=== PATIENT | female | born 1985 ===

== ENCOUNTER 2016-09-21 20:00 | Emergency (ER) | payer MEDICAID, OTHER ==
[2016-09-21 20:01] VITALS: BMI 32.5
--- NOTE | 2016-09-21 20:19 | ED PDOC ---
Arrival/HPI <Sunny Taveras - Last Filed: 09/21/16 21:05> - General Historian: Patient <Boris Thomas - Last Filed: 09/21/16 22:47> - General Chief Complaint: GI Problem Time Seen by Provider: 09/21/16 20:19 - History of Present Illness Narrative History of Present Illness (Text): 09/21/16 20:19 31 y/o female, no significant pmh, nkda, c/o nausea/vomiting/diarrhea/abdominal pain x 1 day. As per patient, both of her [place] are sick with nausea/vomiting and diarrhea with the stomach virus passing around at home. Pt. has no fever or chills, 4 episodes of diarrhea with couple episodes of nausea/vomiting, no recent traveling for the past 4 weeks, no chest pain or shortness of breath, no night sweat, no dizziness, no numbness or tingling, no other medical or psychological complaints. (Boris Thomas) Past Medical History - Provider Review Nursing Documentation Reviewed: Yes - Infectious Disease Hx of Infectious Diseases: None - Tetanus Immunization Tetanus Immunization: Unknown - Past Medical History Past Medical History: No Previous - Cardiac Hx Cardiac Disorders: No - Pulmonary Hx Asthma: Yes - Neurological Hx Neurological Disorder: No - HEENT Hx HEENT Disorder: No - Renal Hx Renal Disorder: No - Endocrine/Metabolic Hx Endocrine Disorders: No - Hematological/Oncological Hx Blood Disorders: No - Integumentary Hx Dermatological Disorder: No - Musculoskeletal/Rheumatological Hx Musculoskeletal Disorders: No - Gastrointestinal Hx Gastrointestinal Disorders: No - Genitourinary/Gynecological Hx Genitourinary Disorders: No - Psychiatric Hx Depression: No Hx Emotional Abuse: No Hx Physical Abuse: No Hx Substance Use: No - Past Surgical History Past Surgical History: No Previous - Suicidal Assessment Feels Threatened In Home Enviroment: No <Boris Thomas - Last Filed: 09/21/16 22:47> Family/Social History - Physician Review Nursing Documentation Reviewed: Yes Family/Social History: Unknown Family HX Smoking Status: Never Smoked Hx Alcohol Use: No Hx Substance Use: No Hx Substance Use Treatment: No <Boris Thomas - Last Filed: 09/21/16 22:47> Allergies/Home Meds <Sunny Taveras - Last Filed: 09/21/16 21:05> <Boris Thomas - Last Filed: 09/21/16 22:47> Allergies/Adverse Reactions: Allergies No Known Allergies Allergy (Verified 09/21/16 20:10) Review of Systems - Review of Systems Constitutional: absent: Fatigue, Fevers Eyes: absent: Vision Changes ENT: absent: Hearing Changes Gastrointestinal: Abdominal Pain, Diarrhea, Nausea, Vomiting Musculoskeletal: Myalgias. absent: Arthralgias, Back Pain, Neck Pain, Joint Swelling Skin: absent: Rash, Pruritis, Skin Lesions Psychiatric: absent: Anxiety, Depression, Suicidal Ideation <Boris Thomas - Last Filed: 09/21/16 22:47> Physical Exam Vital Signs Reviewed: Yes Temperature: Afebrile Blood Pressure: Normal Pulse: Regular Respiratory Rate: Normal Appearance: Positive for: Well-Appearing, Non-Toxic, Comfortable Pain Distress: Mild Mental Status: Positive for: Alert and Oriented X 3 - Systems Exam Head: Present: Atraumatic, Normocephalic Pupils: Present: PERRL Extroacular Muscles: Present: EOMI Conjunctiva: Present: Normal Mouth: Present: Moist Mucous Membranes Neck: Present: Normal Range of Motion Respiratory/Chest: Present: Clear to Auscultation, Good Air Exchange. No: Respiratory Distress, Accessory Muscle Use Cardiovascular: Present: Regular Rate and Rhythm, Normal S1, S2. No: Murmurs Abdomen: Present: Normal Bowel Sounds. No: Tenderness, Distention, Peritoneal Signs, Rebound, Guarding Back: Present: Normal Inspection. No: CVA Tenderness Upper Extremity: Present: Normal Inspection. No: Cyanosis, Edema Lower Extremity: Present: Normal Inspection. No: Edema Neurological: Present: GCS=15, Speech Normal, Motor Func Grossly Intact, Gait Normal, Memory Normal Skin: Present: Warm, Dry, Normal Color. No: Rashes Psychiatric: Present: Alert, Oriented x 3, Normal Insight, Normal Concentration <Boris Thomas - Last Filed: 09/21/16 22:47> Vital Signs Temp Pulse Resp BP Pulse Ox 09/21/16 22:21 98.5 F 87 18 115/77 98 09/21/16 20:11 98.9 F 96 H 16 123/83 99 Medical Decision Making <Sunny Taveras - Last Filed: 09/21/16 21:05> - Lab Interpretations I have reviewed the lab results: Yes Interpretation: No clinic. lab abnormalty <Boris Thomas - Last Filed: 09/21/16 22:47> ED Course and Treatment: 09/21/16 20:30 -labs/ua -IVF/pepcid/reglan -Observe and reassess 09/21/16 22:43 -Labs are non-significant -UA show no UTI -Lipase within normal limit -Pt. feels better, able to tolerate po -Discharge home with pepcid, zofran, BRAT diet, stay hydrated, follow up with your own pmd and GI within 2 days, return to the ER for any new or worsening signs or symptoms. (Boris Thomas) - Lab Interpretations Lab Results: 09/21/16 21:43 09/21/16 21:43 Lab Results 09/21/16 21:43: Sodium 139, Potassium 3.9, Chloride 102, Carbon Dioxide 27, Anion Gap 14, BUN 17, Creatinine 0.6, Est GFR ( Amer) > 60, Est GFR (Non- Af Amer) > 60, Random Glucose 89, Calcium 9.2, Total Bilirubin 0.7, AST 29, ALT 39, Alkaline Phosphatase 80, Total Protein 8.4 H, Albumin 4.7, Globulin 3.7, Albumin/Globulin Ratio 1.3, Lipase 50 09/21/16 21:43: WBC 9.8, RBC 5.06, Hgb 13.8, Hct 41.6, MCV 82.2, MCH 27.3, MCHC 33.2, RDW 14.1, Plt Count 233, MPV 10.0, Gran % 78.5 H, Lymph % (Auto) 15.7 L, Baker % (Auto) 4.8, Eos % (Auto) 0.8 L, Baso % (Auto) 0.2, Gran # 7.72 H, Lymph # 1.5, Baker # 0.5, Eos # 0.1, Baso # 0.02 09/21/16 20:25: Urine Color Yellow, Urine Appearance Sl cloudy, Urine pH 6.0, Ur Specific [place] >= 1.030, Urine Protein Trace H, Urine Glucose (UA) Negative , Urine Ketones Negative, Urine Blood Trace-intact H, Urine Nitrate Negative, Urine Bilirubin Negative, Urine Urobilinogen 0.2, Ur Leukocyte Esterase Negative , Urine RBC 1 - 3, Urine WBC 0 - 2, Ur Epithelial Cells 0 - 2, Urine Bacteria Few - Medication Orders Current Medication Orders: Discontinued Medications Famotidine (Pepcid) 20 mg IVP STAT STA Stop: 09/21/16 20:29 Last Admin: 09/21/16 21:57 Dose: 20 mg Sodium Chloride (Sodium Chloride 0.9%) 1,000 mls @ 999 mls/hr IV .Q1H1M STA Stop: 09/21/16 21:28 Last Admin: 09/21/16 21:57 Dose: 999 mls/hr Metoclopramide HCl (Reglan) 10 mg IVP STAT STA Stop: 09/21/16 20:29 Last Admin: 09/21/16 21:57 Dose: 10 mg - PA / STATISTICAL ENGINEER / Resident Statement FRED has reviewed & agrees with the documentation as recorded. <Sunny Taveras - Last Filed: 09/21/16 21:05> - PA / STATISTICAL ENGINEER / Resident Statement FRED has reviewed & agrees with the documentation as recorded. <Boris Thomas - Last Filed: 09/21/16 22:47> Disposition/Present on Arrival <Sunny Taveras - Last Filed: 09/21/16 21:05> - Present on Arrival Any Indicators Present on Arrival: No History of DVT/PE: No History of Uncontrolled Diabetes: No Urinary Catheter: No History of Decub. Ulcer: No History Surgical Site Infection Following: None - Disposition Have Diagnosis and Disposition been Completed?: Yes Disposition Time: 20:38 Patient Plan: Discharge <Boris Thomas - Last Filed: 09/21/16 22:47> - Disposition Diagnosis: Gastroenteritis Disposition: HOME/ ROUTINE Patient Problems: Current Active Problems Problem Status Onset Gastroenteritis Acute Condition: IMPROVED Additional Instructions: Discharge home with pepcid, zofran, BRAT diet, stay hydrated, follow up with your own pmd and GI within 2 days, return to the ER for any new or worsening signs or symptoms. Prescriptions: Famotidine [Pepcid] 20 mg PO BID PRN #14 tab PRN Reason: Other Ondansetron [Zofran] 4 mg PO Q8H PRN #10 tab PRN Reason: Nausea/Vomiting Referrals: Karely Ayers NS [Primary Care Provider] - Follow up with primary Gerry Andrew MD [Staff Provider] - Follow up with primary Forms: WORK NOTE
[2016-09-21] MEDS ORDERED: Sodium Chloride 0.9% 1,000 ML IV STA (20:28)
[2016-09-21 20:38] LABS: URINE BILIRUBIN NEGATIVE (NEGATIVE); URINE BLOOD TRACE-INTACT (NEGATIVE); URINE GLUCOSE (UA) NEGATIVE (NEGATIVE); URINE KETONE NEGATIVE (NEGATIVE); URINE LEUKOCYTE ESTERASE NEGATIVE Leu/uL (NEGATIVE); URINE PROTEIN TRACE mg/dL (<30 mg/dL); URINE UROBILINOGEN 0.2 E.U./dL (<1 E.U./dL)
[2016-09-21 20:39] LABS: URINE APPEARANCE SL CLOUDY (CLEAR); URINE COLOR YELLOW (YELLOW)
[2016-09-21 20:45] LABS: URINE BACTERIA FEW (NEG); URINE EPITHELIAL CELLS 0 - 2 /hpf (0-5); URINE WBC 0 - 2 /hpf (0-6)
[2016-09-21 21:51] LABS: ADD MANUAL DIFF? NO
[2016-09-21 21:52] LABS: BASO # 0.02 K/mm3 (0.0-2.0); BASO % 0.2 % (0.0-3.0); EOS # 0.1 (0.0-0.7); EOS % 0.8 % (1.5-5.0); GRAN # 7.72 (1.4-6.5); GRAN % 78.5 % (50.0-68.0); HEMATOCRIT 41.6 % (36.0-48.0); LYMPH # 1.5 (1.2-3.4); LYMPH % 15.7 % (22.0-35.0); MEAN CELL VOLUME 82.2 fL (80.0-105.0); MEAN CORPUSCULAR HEMOGLOBIN 27.3 pg (25.0-35.0); MEAN CORPUSCULAR HGB CONC 33.2 g/dl (31.0-37.0); MONO # 0.5 (0.1-0.6); MONO % 4.8 % (1.0-6.0); PLATELET COUNT 233 10^3/uL (120.0-450.0); RED CELL DISTRIBUTION WIDTH 14.1 % (11.5-14.5); WHITE BLOOD COUNT 9.8 10^3/ul (4.5-11.0)
[2016-09-21 22:08] LABS: ALB/GLOB RATIO 1.3 (1.1-1.8); ALKALINE PHOSPHATASE 80 U/L (38-133); ALT/SGPT 39 U/L (7-56); AST/SGOT 29 U/L (15-39); BILIRUBIN,TOTAL 0.7 mg/dL (0.2-1.3); BLOOD UREA NITROGEN 17 mg/dL (7-21); CALCIUM 9.2 mg/dL (8.4-10.5); CARBON DIOXIDE 27 mmol/L (21-33); CHLORIDE 102 mmol/L (98-107); GFR AFRICAN-AMERICAN > 60; GLUCOSE,RANDOM 89 mg/dL (70-110); LIPASE 50 U/L (23-300); POTASSIUM 3.9 mmol/L (3.6-5.0); SODIUM 139 mmol/L (132-148); TOTAL PROTEIN 8.4 g/dL (5.8-8.3)
[2016-09-21 22:22] VITALS: BP 115/77; PULSE 87; RESP 18; TEMP 98.5; O2SAT 98
== END 2016-09-21 23:09 | disposition home or self-care (01) ==
LOC: ED 20:00
DX: K52.9 Noninfective gastroenteritis and colitis, unspecified (principal)
CPT/HCPCS: 80053; 81001; 83690; 85025; 96374; 96375; 99283; J2765; J7040

== ENCOUNTER 2016-10-01 21:42 | Emergency (ER) | payer OTHER ==
[2016-10-01 22:00] VITALS: BMI 34.0
--- NOTE | 2016-10-01 22:24 | ED PDOC ---
Arrival/HPI - General Chief Complaint: Foreign Body Time Seen by Provider: 10/01/16 22:16 Historian: Patient - History of Present Illness Narrative History of Present Illness (Text): 10/01/16 22:21 31yo female with no PMHx who present with complaint of lodged spaghetti to her right index finger, causing her to her pain. states the spaghetti went under her nail yesterday. she started experiencing pain and noticed swelling of the finger today. She denies redness, discharge, fever, chill, any other complaint. Past Medical History - Provider Review Nursing Documentation Reviewed: Yes - Infectious Disease Hx of Infectious Diseases: None - Tetanus Immunization Tetanus Immunization: Unknown - Past Medical History Past Medical History: No Previous - Cardiac Hx Cardiac Disorders: No - Pulmonary Hx Asthma: Yes - Neurological Hx Neurological Disorder: No - HEENT Hx HEENT Disorder: No - Renal Hx Renal Disorder: No - Endocrine/Metabolic Hx Endocrine Disorders: No - Hematological/Oncological Hx Blood Disorders: No - Integumentary Hx Dermatological Disorder: No - Musculoskeletal/Rheumatological Hx Musculoskeletal Disorders: No - Gastrointestinal Hx Gastrointestinal Disorders: No - Genitourinary/Gynecological Hx Genitourinary Disorders: No - Psychiatric Hx Depression: No Hx Emotional Abuse: No Hx Physical Abuse: No Hx Substance Use: No - Past Surgical History Past Surgical History: No Previous - Suicidal Assessment Feels Threatened In Home Enviroment: No Family/Social History - Physician Review Nursing Documentation Reviewed: Yes Family/Social History: Unknown Family HX Smoking Status: Never Smoked Hx Alcohol Use: No Hx Substance Use: No Hx Substance Use Treatment: No Allergies/Home Meds Allergies/Adverse Reactions: Allergies No Known Allergies Allergy (Verified 10/01/16 22:00) Home Medications: Home Meds Medication Instructions Recorded Confirmed Albuterol 0.083% [Albuterol 0.083% 1 inh NEB PRN PRN 10/01/16 10/01/16 Inhal Olimpia (2.5 mg/3 ml) UD] Albuterol HFA [Ventolin HFA 90 1 puff INH PRN PRN 10/01/16 10/01/16 mcg/actuation (8 g)] Review of Systems - Physician Review All systems were reviewed & negative as marked: Yes - Review of Systems Constitutional: Normal Eyes: Normal ENT: Normal Respiratory: Normal Cardiovascular: Normal Gastrointestinal: Normal Genitourinary Female: Normal Musculoskeletal: Arthralgias (Right index pain) Skin: Normal Neurological: Normal Endocrine: Normal Hemo/Lymphatic: Normal Psychiatric: Normal Physical Exam Vital Signs Reviewed: Yes Vital Signs Temp Pulse Resp BP Pulse Ox 10/02/16 00:00 98 F 75 20 129/75 96 10/01/16 22:03 98.9 F 83 16 127/84 100 Temperature: Afebrile Blood Pressure: Normal Pulse: Regular Respiratory Rate: Normal Appearance: Positive for: Well-Appearing, Non-Toxic, Comfortable Pain Distress: None Mental Status: Positive for: Alert and Oriented X 3 - Systems Exam Head: Present: Atraumatic, Normocephalic Pupils: Present: PERRL Extroacular Muscles: Present: EOMI Conjunctiva: Present: Normal Mouth: Present: Moist Mucous Membranes Neck: Present: Normal Range of Motion Respiratory/Chest: Present: Clear to Auscultation, Good Air Exchange. No: Respiratory Distress, Accessory Muscle Use Cardiovascular: Present: Regular Rate and Rhythm, Normal S1, S2. No: Murmurs Abdomen: Present: Normal Bowel Sounds. No: Tenderness, Distention, Peritoneal Signs Back: Present: Normal Inspection Upper Extremity: Present: Normal ROM, NORMAL PULSES, Tenderness (Right index finger), Swelling (Right index finger), Neurovascularly Intact. No: Cyanosis, Edema, Erythema, Temperature Abnormalties, Deformity Lower Extremity: Present: Normal Inspection. No: Edema Neurological: Present: GCS=15, CN II-XII Intact, Speech Normal Skin: Present: Warm, Dry, Normal Color. No: Rashes Psychiatric: Present: Alert, Oriented x 3, Normal Insight, Normal Concentration Medical Decision Making ED Course and Treatment: 10/02/16 00:12 PT presented for stated history. She was treated with analgesic and placed on abx. She noted that it was a piece of spaghetti that went under her nail. She was advised to soak finger in a warm water and f/u with hand specialist. Advised TRT ED for any new or worsening symptoms. - Medication Orders Current Medication Orders: Discontinued Medications Cephalexin Monohydrate (Keflex) 500 mg PO STAT STA PRN Reason: Protocol Stop: 10/01/16 22:27 Last Admin: 10/01/16 22:40 Dose: 500 mg Lidocaine HCl (Lidocaine 1% (20ml)) Confirm Administered Dose 20 ml .ROUTE .[employer] ONE Stop: 10/01/16 22:46 Last Admin: 10/01/16 22:53 Dose: Tramadol HCl (Ultram) 50 mg PO STAT STA Stop: 10/01/16 22:26 Last Admin: 10/01/16 22:40 Dose: 50 mg Disposition/Present on Arrival - Present on Arrival Any Indicators Present on Arrival: No History of DVT/PE: No History of Uncontrolled Diabetes: No Urinary Catheter: No History of Decub. Ulcer: No History Surgical Site Infection Following: None - Disposition Have Diagnosis and Disposition been Completed?: Yes Diagnosis: Foreign body, Finger pain Disposition: HOME/ ROUTINE Disposition Time: 23:25 Patient Plan: Discharge Condition: STABLE Discharge Instructions (ExitCare): Arthralgia (ED) Additional Instructions: Soak finger in warm salty water Take medication as directed Follow up with a hand specialist Return to ED for any new or worsening symptoms Prescriptions: Cephalexin [Keflex] 500 mg PO QID #28 capsule traMADol [Ultram] 50 mg PO TID #9 tab Referrals: Gentry Kirby MD [Staff Provider] - Follow up with primary Forms: WORK NOTE
[2016-10-01] MEDS ORDERED: Lidocaine 1% Inj (20ml) ONE (22:45)
[2016-10-02 00:07] VITALS: BP 129/75; PULSE 75; RESP 20; TEMP 98; O2SAT 96
== END 2016-10-02 00:08 | disposition home or self-care (01) ==
LOC: ED 21:42
DX: S60.450A Superficial foreign body of right index finger, initial encounter (principal); W45.8XXA Other foreign body or object entering through skin, initial encounter; M79.644 Pain in right finger(s)

== ENCOUNTER 2017-07-02 11:29 | Emergency (ER) | payer OTHER ==
[2017-07-02 11:29] VITALS: BMI 34.0
[2017-07-02 11:36] VITALS: BP 120/82; PULSE 74; RESP 16; TEMP 97.4; O2SAT 97
--- NOTE | 2017-07-02 12:06 | ED PDOC ---
Arrival/HPI - General Chief Complaint: Eye Problem Time Seen by Provider: 07/02/17 11:48 Historian: Patient - History of Present Illness Narrative History of Present Illness (Text): 07/02/17 11:49 32 y/o female, pmh including endometritis, nkda, wears contact, last tetanus under 4 years ago, c/o lt. eye irritation and tearing after wearing contact and flushing the eye. Pt. stated that she wears hard contacts, removed them last night as she feel the left eye with irritation, flushed with eye drop at home with limited relief, woke up this morning with redness, no change painful movement of the eye, no headache, no neck pain, no other medical or psychological complaints. Past Medical History - Provider Review Nursing Documentation Reviewed: Yes - Infectious Disease Hx of Infectious Diseases: None - Tetanus Immunization Tetanus Immunization: Unknown - Past Medical History Past Medical History: No Previous - Cardiac Hx Cardiac Disorders: No - Pulmonary Hx Asthma: Yes - Neurological Hx Neurological Disorder: No - HEENT Hx HEENT Disorder: No - Renal Hx Renal Disorder: No - Endocrine/Metabolic Hx Endocrine Disorders: No - Hematological/Oncological Hx Blood Disorders: No - Integumentary Hx Dermatological Disorder: No - Musculoskeletal/Rheumatological Hx Musculoskeletal Disorders: No - Gastrointestinal Hx Gastrointestinal Disorders: No - Genitourinary/Gynecological Hx Genitourinary Disorders: No - Psychiatric Hx Depression: No Hx Emotional Abuse: No Hx Physical Abuse: No Hx Substance Use: No - Past Surgical History Past Surgical History: No Previous - Suicidal Assessment Feels Threatened In Home Enviroment: No Family/Social History - Physician Review Nursing Documentation Reviewed: Yes Family/Social History: Unknown Family HX Smoking Status: Never Smoked Hx Alcohol Use: No Hx Substance Use: No Hx Substance Use Treatment: No Allergies/Home Meds Allergies/Adverse Reactions: Allergies No Known Allergies Allergy (Verified 07/02/17 11:36) Review of Systems - Review of Systems Constitutional: absent: Fatigue, Fevers Eyes: Other (lt. eye tearing). absent: Vision Changes ENT: absent: Hearing Changes Respiratory: absent: SOB, Cough Cardiovascular: absent: Chest Pain Gastrointestinal: absent: Abdominal Pain, Diarrhea, Nausea, Vomiting Skin: absent: Rash, Pruritis Neurological: absent: Headache, Dizziness Psychiatric: absent: Anxiety, Depression, Suicidal Ideation Physical Exam Vital Signs Reviewed: Yes Vital Signs Temp Pulse Resp BP Pulse Ox 03/11/18 11:30 97.4 F L 74 16 120/82 97 Temperature: Afebrile Blood Pressure: Normal Pulse: Regular Respiratory Rate: Normal Appearance: Positive for: Well-Appearing, Non-Toxic, Comfortable Pain Distress: None Mental Status: Positive for: Alert and Oriented X 3 - Systems Exam Head: Present: Atraumatic, Normocephalic Pupils: Present: PERRL Extroacular Muscles: Present: EOMI Conjunctiva: Present: Normal, Other (Eyes: rt. eye w/o correction 20/25 vs. lt. eye w/o correcetion 20/30, bilateral vision 20/25 w/o correction, +lt. conjunctivitis with no painful movement of the eye and no uptake with the fluorsein stain, negative nishant sign on the left eye, no periorbital cellulitis or swelling, rt. eye within normal limit. ) Mouth: Present: Moist Mucous Membranes Neck: Present: Normal Range of Motion Respiratory/Chest: Present: Clear to Auscultation, Good Air Exchange. No: Respiratory Distress, Accessory Muscle Use Cardiovascular: Present: Regular Rate and Rhythm, Normal S1, S2. No: Murmurs Abdomen: Present: Normal Bowel Sounds. No: Tenderness, Distention, Peritoneal Signs Back: Present: Normal Inspection Upper Extremity: Present: Normal Inspection. No: Cyanosis, Edema Lower Extremity: Present: Normal Inspection. No: Edema Neurological: Present: GCS=15, CN II-XII Intact, Speech Normal Skin: Present: Warm, Dry, Normal Color. No: Rashes Psychiatric: Present: Alert, Oriented x 3, Normal Insight, Normal Concentration Medical Decision Making ED Course and Treatment: 07/02/17 12:16 -ciloxcin/eyepatch for 24 hours -Discharge home with ciloxin, zyrtec for itching/tearing, motrin for pain, eyepatch for 24 hours , avoid eye make up and contacts until symptoms resolved and follow up with the opthalmologist, - Medication Orders Current Medication Orders: Discontinued Medications Ciprofloxacin (Ciloxan 0.3% Ophth Soln) 2 drop OS STAT STA Stop: 07/02/17 12:12 - PA / [employer] SERVICER / Resident Statement MD/DO has reviewed & agrees with the documentation as recorded. Disposition/Present on Arrival - Present on Arrival Any Indicators Present on Arrival: No History of DVT/PE: No History of Uncontrolled Diabetes: No Urinary Catheter: No History of Decub. Ulcer: No History Surgical Site Infection Following: None - Disposition Have Diagnosis and Disposition been Completed?: Yes Diagnosis: Conjunctivitis Disposition: HOME/ ROUTINE Disposition Time: 12:17 Patient Plan: Discharge Patient Problems: Current Active Problems Problem Status Onset Conjunctivitis Acute Condition: GOOD Discharge Instructions (ExitCare): Conjunctivitis ([place]) Additional Instructions: -Discharge home with ciloxin, zyrtec for itching/tearing, motrin for pain, eyepatch for 24 hours , avoid eye make up and contacts until symptoms resolved and follow up with the opthalmologist, Prescriptions: Cetirizine HCl [Zyrtec] 10 mg PO DAILY PRN #10 capsule PRN Reason: Other Ciprofloxacin 0.3% [Ciloxan 0.3% Ophth SOLN] 2 drop OS Q4 #1 bottle Ibuprofen [Motrin Tab] 600 mg PO QID PRN #30 tab PRN Reason: Other Referrals: [facility] [place] [Outside] - Follow up with primary Kelvin Gallagher MD [Staff Provider] - Follow up with primary Forms: WORK NOTE
[2017-07-02] MEDS ORDERED: Ciprofloxacin 0.3% OPTH SOLN OS STA (12:11)
== END 2017-07-02 12:41 | disposition home or self-care (01) ==
LOC: ED 11:29
DX: H10.9 Unspecified conjunctivitis (principal)